=== PATIENT | female | born 1940 | race Two or more races ===

== ENCOUNTER 2018-07-02 23:44 | Inpatient (IN) | payer MEDICARE, MEDICAID ==
[~2018-07-02] VITALS: Ht 147.3 cm; Wt 47.6 kg
[2018-07-03] VITALS: BP 150/66
[2018-07-03] MEDS ORDERED: ZOLPIDEM TARTRATE 5 MG TABLET PO PRN (00:30)
[2018-07-03] MEDS ORDERED: HYDROCODONE/APAP 5/325MG 1 EACH TABLET PO PRN (00:30)
[2018-07-03] MEDS ORDERED: ACETAMINOPHEN 325 MG TABLET PO PRN (00:30)
[2018-07-03] MEDS ORDERED: Z GUARD REMEDY 2 OZ OINT TP PRN (00:30)
[2018-07-03] MEDS ORDERED: MAGNESIUM HYDROXIDE 30 ML UDC PO PRN (00:30)
[2018-07-03] MEDS ORDERED: MAG HYDROX/AL HYDROX/SIMETH 30 ML UDC PO PRN (00:30)
[2018-07-03] MEDS ORDERED: ONDANSETRON HCL/PF 4 MG/2 ML VIAL IVP PRN (00:30)
[2018-07-03 00:31] VITALS: BP 150/66
--- NOTE | 2018-07-03 00:53 | NUR ---
SUPERVISOR WINTER NOTES PATIENT ARRIVED AT 0000. DAUGHTER, FELICIANO, IS ACCOMPANYING HER. CHIEF COMPLAINT IS STOMACH PAIN. PATIENT HAS NO SIGNS OF RESPIRATORY DISTRESS. PATIENT DENIES SHORTNESS OF BREATH. PATIENT SAYS SHE HAS STOMACH PAIN THAT COMES AND GOES, PAIN LEVEL AT 4 AT THIS TIME. AWAITING VERIFICATION ORDER FROM PHARMACY. SAFETY PRECAUTIONS IMPLEMENTED. CALL LIGHT WITHIN REACH. WILL CONTINUE TO MONITOR PATIENT THROUGHOUT THE SHIFT.
--- NOTE | 2018-07-03 00:57 | NUR ---
RN NOTES REFUSAL NASOGASTRIC TUBE PLACEMENT WAS ORDERED. PATIENT REFUSED. ALL BENEFITS WAS DISCUSSED WITH DAUGHTER AND PATIENT. PATIENT STILL REFUSES NG TUBE INSERTION.
[2018-07-03 01:41] LABS: BASOPHILS % (AUTO) 0.5 % (0.0-2.0); EOSINOPHILS % (AUTO) 0.4 % (0.0-6.0); HEMATOCRIT 36 % (33-45); HEMOGLOBIN 12.3 g/dL (11.5-14.8); LYMPHOCYTES # (AUTO) 0.8 /CMM (0.8-4.8); LYMPHOCYTES % (AUTO) 15.4 % (20.0-44.0); MEAN CORPUSCULAR HGB CONC 34 g/dl (31.0-36.0); MEAN CORPUSCULAR VOLUME 88 fL (82-100); MONOCYTES # (AUTO) 0.6 /CMM (0.1-1.30); NEUTROPHILS # (AUTO) 3.5 /CMM (1.8-8.9); NEUTROPHILS % (AUTO) 70.7 % (43.0-81.0); PLATELET COUNT (AUTO) 115 /CMM (150-450); RED BLOOD CELL COUNT(AUTO) 4.12 MIL/uL (4.0-5.2); WHITE BLOOD COUNT (AUTO) 4.9 K/uL (4.3-11.0)
[2018-07-03 01:51] LABS: ALANINE AMINOTRANSFERASE 128 U/L (12-78); ALBUMIN 3.4 g/dL (3.4-5.0); ALKALINE PHOSPHATASE 87 U/L (46-116); ASPARTATE AMINOTRANSFERASE 135 U/L (15-37); BILIRUBIN,TOTAL 1.4 mg/dL (0.2-1.0); CALCIUM, SERUM 8.5 mg/dL (8.5-10.1); CARBON DIOXIDE 25 mmol/L (21-32); CHLORIDE 106 mmol/L (98-107); CREATININE 0.9 mg/dL (0.6-1.3); GLUCOSE 120 mg/dL (74-106); POTASSIUM 4.2 mmol/L (3.5-5.1); SODIUM SERUM 143 mmol/L (136-145); TOTAL PROTEIN, SERUM 6.3 g/dL (6.4-8.2); UREA NITROGEN, BLOOD 24 mg/dL (7-18)
[2018-07-03] MEDS: PANTOPRAZOLE 40 MG VIAL IV SCH ×2 (02:40→12:24)
[2018-07-03] MEDS: IV D5/0.45 NACL 1,000 ML IV PRN ×2 (02:43→22:55)
[2018-07-03] MEDS: MORPHINE SULFATE INJ 2 MG/ML DISP.SYRIN IV PRN ×2 (04:37→18:04)
--- NOTE | 2018-07-03 04:37 | NUR ---
RN NOTES MORPHINE 1MG IV GIVEN. DR. LAZARO IS AWARE PATIENT REFUSES NASOGASTRIC TUBE. DR. LAZARO INSTRUCTS TO KEEP HEAD OF BED ELEVATED AT THIS TIME.
--- NOTE | 2018-07-03 06:40 | NUR ---
RN CLOSING NOTES PATIENT IS RESTING IN BED. PATIENT HAS NO SIGNS OF RESPIRATORY DISTRESS. NO SIGNS OF SHORTNESS OF BREATH. NO FACIAL GRIMACING NOTED. SAFETY PRECAUTIONS IMPLEMENTED. ALL NEEDS ATTENDED. CALL LIGHT WITHIN REACH. WILL ENDORSE TO AM NURSE.
--- NOTE | 2018-07-03 07:55 | NUR ---
MS RN OPENING NOTES PATIENT RECEIVED IN BED AWAKE ALERT AND ORIENTED X3. PATIENT ABLE TO VERBALIZE NEEDS. BREATHING IS EVEN AND UNLABORED, NO SOB, TOLERATING BREATHING TO ROOM AIR. PATIENT DENIES PAIN OR DISCOMFORT AT THIS TIME. IV ON LAC IS PATENT AND INTACT WITHOUT SIGNS OR SYMPTOMS OF INFILTRATION. SKIN IS DRY AND WARM TO TOUCH. LINENS ARE CLEAN AND DRY. SAFETY PRECAUTIONS IN PLACE. BED AT LOWEST LOCKED POSITION. CALL LIGHT IS WITHIN REACH. WILL CONTINUE TO MONITOR.
[2018-07-03 08:00] VITALS: BP 119/59
[2018-07-03] MEDS ORDERED: LOPE2CAP40 PO (08:42)
[2018-07-03] MEDS ORDERED: POTA20TA83 PO (08:42)
[2018-07-03] MEDS ORDERED: MAGN400T26 PO (08:42)
[2018-07-03] MEDS ORDERED: OMEP20CA10 PO (08:42)
[2018-07-03] MEDS ORDERED: CALC-7 PO (08:42)
[2018-07-03] MEDS ORDERED: ALLO100T PO (08:42)
[2018-07-03] MEDS ORDERED: AMLO5TAB9 PO (08:42)
[2018-07-03] MEDS ORDERED: MELO-107 PO (08:44)
[2018-07-03] MEDS ORDERED: OMEPRAZOLE 20 MG CAPSULE.DR PO SCH (09:30)
[2018-07-03] MEDS: AMLODIPINE BESYLATE 5 MG TABLET PO SCH (09:30)
[2018-07-03] MEDS: CALCIUM CARB 250MG /VITAMIN D 1 UDTAB PO SCH (09:30)
[2018-07-03] MEDS ORDERED: DIATR MEGLU/DIATRIZOATE SODIUM 120 ML BOTTLE (GASTROGRAPHIN) ONE (12:48)
[2018-07-03 16:00] VITALS: BP 134/69
--- NOTE | 2018-07-03 19:24 | NUR ---
RN MS CLOSING NOTES PATIENT AWAKE AND RESTING COMFORTABLY IN BED AT THIS TIME PATIENT A/OX4. NEPALI SPEAKING. NO ACUTE CHANGES THROUGHOUT SHIFT. BREATHING EVEN AND UNLABORED. NO SOB NOTED. TOLERATING ROOM AIR. IV ON LEFT AC INTACT AND PATENT, IVF D5 1/2 NS INFUSING AT 75 ML/HR.NO SIGNS AND SYMPTOMS OF INFILTRATION NOTED. SKIN DRY AND WARM TO TOUCH. AFEBRILE. ALL NEEDS AND CARE ATTENDED WELL. SAFETY MEASURES IN PLACE, BED IN LOWEST LOCKED POSITION, SRX2 UP. CALL LIGHT WITHIN REACH. ENDORSED TO NIGHT NURSE BIJU FOR DINORAH.
--- NOTE | 2018-07-03 19:43 | NUR ---
RN MS OPENING NOTES RECEIVED PATIENT IN BED AWAKE, ALERT AND ORIENTED X3, VERBALLY RESPONSIVE, ABLE TO MAKE NEEDS KNOWN. POLISH SPEAKER ONLY. BREATHING EVEN AND UNLABORED. NO SOB NOTED. TOLERATING ROOM AIR. NO COMPLAINTS OF PAIN OR DISCOMFORT. NO FACIAL GRIMACING. IV ON LEFT AC INTACT AND PATENT. SKIN DRY AND WARM TO TOUCH. AFEBRILE. ALL OTHER NEEDS ATTENDED TO .SAFETY MEASURES IN PLACE. CALL LIGHT WITHIN REACH. WILL CONTINUE TO MONITOR.
[2018-07-03 20:00] VITALS: BP 129/86
[2018-07-04 06:27] LABS: BASOPHILS % (AUTO) 0.1 % (0.0-2.0); EOSINOPHILS % (AUTO) 2.4 % (0.0-6.0); HEMATOCRIT 32 % (33-45); HEMOGLOBIN 10.9 g/dL (11.5-14.8); LYMPHOCYTES # (AUTO) 1.1 /CMM (0.8-4.8); LYMPHOCYTES % (AUTO) 21.3 % (20.0-44.0); MEAN CORPUSCULAR HGB CONC 34 g/dl (31.0-36.0); MEAN CORPUSCULAR VOLUME 90 fL (82-100); MONOCYTES # (AUTO) 0.7 /CMM (0.1-1.30); MONOCYTES % (AUTO) 13.8 % (2.0-12.0); NEUTROPHILS # (AUTO) 3.1 /CMM (1.8-8.9); NEUTROPHILS % (AUTO) 62.4 % (43.0-81.0); PLATELET COUNT (AUTO) 98 /CMM (150-450); RED BLOOD CELL COUNT(AUTO) 3.56 MIL/uL (4.0-5.2)
--- NOTE | 2018-07-04 06:45 | NUR ---
RN MS CLOSING NOTES PATIENT RESTING IN BED. NO ACUTE CHANGES THROUGHOUT SHIFT. BREATHING EVEN AND UNLABORED. NO SOB NOTED. TOLERATING ROOM AIR. NO COMPLAINTS OF PAIN OR DISCOMFORT. NO FACIAL GRIMACING. IV ON LEFT AC INTACT AND PATENT WITH IVF INFUSING. SKIN DRY AND WARM TO TOUCH. AFEBRILE. ALL OTHER NEEDS ATTENDED TO .SAFETY MEASURES IN PLACE. CALL LIGHT WITHIN REACH. WILL ENDORSE TO ONCOMING NURSE FOR DINORAH.
[2018-07-04 06:52] LABS: ALANINE AMINOTRANSFERASE 73 U/L (12-78); ALKALINE PHOSPHATASE 68 U/L (46-116); ASPARTATE AMINOTRANSFERASE 37 U/L (15-37); BILIRUBIN,TOTAL 0.7 mg/dL (0.2-1.0); CARBON DIOXIDE 25 mmol/L (21-32); CHLORIDE 109 mmol/L (98-107); CREATININE 0.7 mg/dL (0.6-1.3); GLUCOSE 103 mg/dL (74-106); MAGNESIUM 1.5 mg/dL (1.8-2.4); PHOSPHORUS 2.1 mg/dL (2.5-4.9); SODIUM SERUM 144 mmol/L (136-145); TOTAL PROTEIN, SERUM 5.7 g/dL (6.4-8.2); UREA NITROGEN, BLOOD 18 mg/dL (7-18)
[2018-07-04 06:57] LABS: POTASSIUM 2.8 mmol/L (3.5-5.1)
--- NOTE | 2018-07-04 07:09 | NUR ---
RN MS NOTES RECEIVED LAB RESULT FOR LOW POTASSIUM OF 2.8. PAGED ONLINE TRADER LAST NIGHT, DR. LAZARO, HOWEVER, KSENIA FROM [employer] STATED THAT DR. LAZARO IS NOW OFF. ENDORSED TO XIOMARA SOLIZ AND XIOMARA VELASQUEZ. PATIENT IS RESTING IN BED. NO DISTRESS. STABLE CONDITION.
[2018-07-04 07:27] LABS: CHOLESTEROL 152 mg/dL (<200); HDL CHOLESTEROL 50 mg/dL (40-60); LDL 81 mg/dL (0-99); TRIGLYCERIDES 151 mg/dL (30-150)
--- NOTE | 2018-07-04 07:38 | NUR ---
MS RN OPENING NOTES PATIENT RECEIVED IN BED AWAKE ALERT AND ORIENTED X3. PATIENT ABLE TO VERBALIZE NEEDS. BREATHING IS EVEN AND UNLABORED, NO SOB, TOLERATING BREATHING TO ROOM AIR. PATIENT DENIES PAIN OR DISCOMFORT AT THIS TIME. IV ON LAC IS PATENT AND INTACT INFUSING IVF D5 1/2 NS @75 ML/HR. SKIN IS DRY AND WARM TO TOUCH. LINENS ARE CLEAN AND DRY. SAFETY PRECAUTIONS IN PLACE. BED AT LOWEST LOCKED POSITION. CALL LIGHT IS WITHIN REACH. WILL CONTINUE TO MONITOR.
[2018-07-04 08:16] VITALS: BP 131/56
--- NOTE | 2018-07-04 08:18 | NUR ---
MS RN NOTES PATIENT LAC HAS REDNESS, SWELLING, AND PAIN 8/10 AT SITE. IV ACCESS REMOVED. NEW IV ACCESS PLACED ON RIGHT WRIST GAUGE #22 INFUSING IVF D5 1/2 NS 75 ML/HR, AND INFUSING WELL.
[2018-07-04] MEDS: CALCIUM CARB 250MG /VITAMIN D 1 UDTAB PO SCH (09:00)
[2018-07-04] MEDS: MELOXICAM 7.5 MG TABLET PO SCH (09:00)
[2018-07-04] MEDS: AMLODIPINE BESYLATE 5 MG TABLET PO SCH (09:00)
--- NOTE | 2018-07-04 09:00 | NUR ---
RN NOTES LAB RESULTS REPORTED MAGNESIUM LEVEL 1.5, PHOSPHORUS LEVEL 2.1. MD NOTIFIED. REPLACED WITH MAGNESIUM 1 MG. IN D5 100ML GIVEN X2 BAGS IVPB, AND POTASSIUM CHLORIDE 20 MEQ PO TABLET X3 DOSES, AND NUTRI PHOS PACKET X2. WILL CONTINUE TO MONITOR.
[2018-07-04] MEDS: PANTOPRAZOLE 40 MG VIAL IV SCH (10:19)
[2018-07-04] MEDS: Magnesium 1GM/D5W 100ML PREMIX 100 ML IV SCH ×2 (10:32→12:02)
[2018-07-04] MEDS: POTASSIUM CHLORIDE 20 MEQ TAB.PRT.SR PO SCH ×3 (11:29→14:39)
--- NOTE | 2018-07-04 14:44 | NUR ---
RN NOTES PATIENT TOLERATED CLEAR LIQUID DIET AT LUNCH TIME WITH NO C/O ABDOMINAL PAIN, N & V. DIET ADVANCED TO FULL LIQUID DIET PER MD ORDER. WILL CONTINUE TO MONITOR.
[2018-07-04 16:00] VITALS: BP 133/69
[2018-07-04] MEDS ORDERED: NEUTRA PHOS 1 POWD.PACKET PO ONE (16:00)
[2018-07-04] MEDS: IV D5/0.45 NACL 1,000 ML IV PRN (17:56)
--- NOTE | 2018-07-04 18:52 | NUR ---
RN CLOSING NOTES PATIENT IS RESTING COMFORTABLY IN BED WITH SON AND DAUGHTER AT BEDSIDE. PATIENT DENIES PAIN OR DISCOMFORT AT THIS TIME. IV ACCESS ON RIGHT WRIST G#22 INFUSING D5 1/2 NS AT 75 ML/HR, INFUSING WELL, NO SIGNS AND SYMPTOMS OF INFILTRATION. BREATHING IS EVEN AND UNLABORED TO ROOM AIR WITH AN O2 SAT. 97%. VITAL SIGNS RECORDED AND ARE WNL AT THIS TIME. SAFETY PRECAUTIONS IMPLEMENTED, BED IN LOWEST LOCKED POSITION WITH SR UP X2, CALL LIGHT WITHIN REACH. WILL ENDORSE TO FORESTRY TREE PRUNER NURSE FOR DINORAH.
--- NOTE | 2018-07-04 19:28 | NUR ---
MS RN RECEIVE PT IN BED. A/O X 3. RESPIRATIONS EVEN AND UNLABORED, NO SOB NOTED, NO DISTRESS, SAFETY MEASURES IN PLACE. WILL CONTINUE TO MONITOR.
[2018-07-04 20:00] VITALS: BP 145/70
--- NOTE | 2018-07-05 06:09 | NUR ---
MS RN CLOSING NOTE ASLEEP EASILY AWAKEN, AM CARE RENDERED. RESPIRATIONS EVEN AND UNLABORED. NOT IN DISTRESS, STABLE. NEEDS ATTENDED AND ANTICIPATED, KEPT CLEAN, DRY AND COMFORT. NO COMPLAIN OF PAIN. SAFETY MEASURES IN PLACE, BED IN LOW LOCKED POSITION, CALL LIGHT WITHIN EASY REACH. ENDORSE TO NEXT SHIFT CONTINUITY OF CARE.
[2018-07-05] MEDS: IV D5/0.45 NACL 1,000 ML IV PRN (06:18)
--- NOTE | 2018-07-05 07:45 | NUR ---
MS/RN Patient received Patient received from night supervisor. A/O X3, Burkinan speaking only, vital signs within normal range, no pain. IV fluids infusing at 75ml/hr, no signs of infiltration seen. Call light within reach, will continue to monitor and ensure safety.
[2018-07-05 07:55] LABS: OCCULT BLOOD STOOL NEGATIVE (NEGATIVE)
[2018-07-05 08:00] VITALS: BP 142/68
[2018-07-05 08:01] VITALS: BP 142/68
[2018-07-05] MEDS: CALCIUM CARB 250MG /VITAMIN D 1 UDTAB PO SCH (08:41)
[2018-07-05] MEDS: PANTOPRAZOLE 40 MG VIAL IV SCH (08:41)
[2018-07-05] MEDS: MELOXICAM 7.5 MG TABLET PO SCH (08:41)
[2018-07-05] MEDS: AMLODIPINE BESYLATE 5 MG TABLET PO SCH (08:42)
--- NOTE | 2018-07-05 09:00 | NUR ---
MS/RN Medications Morning medications administered as ordered, no difficulty swallowing.
[2018-07-05 09:49] LABS: CALCIUM, SERUM 7.7 mg/dL (8.5-10.1); CARBON DIOXIDE 23 mmol/L (21-32); CHLORIDE 107 mmol/L (98-107); CREATININE 0.6 mg/dL (0.6-1.3); GLUCOSE 108 mg/dL (74-106); PHOSPHORUS 2.1 mg/dL (2.5-4.9); POTASSIUM 3.4 mmol/L (3.5-5.1); SODIUM SERUM 139 mmol/L (136-145); UREA NITROGEN, BLOOD 8 mg/dL (7-18)
[2018-07-05] MEDS ORDERED: POTASSIUM CHLORIDE 20 MEQ TAB.PRT.SR PO ONE (12:30)
[2018-07-05] MEDS: NEUTRA PHOS 1 POWD.PACKET PO SCH ×2 (13:13→17:00)
--- NOTE | 2018-07-05 13:30 | NUR ---
MS/RN S/B Brian Stallworth TRANSPORTATION PROJECT MANAGER Seen by TRANSPORTATION PROJECT MANAGER - patient to be discharged to home later today following potassium and phosphate replacement.
--- NOTE | 2018-07-05 14:30 | NUR ---
MS/RN Exit care Exit care prepared.
[2018-07-05 15:35] VITALS: BP 133/80
--- NOTE | 2018-07-05 17:00 | NUR ---
MS/corporate manager paperwork Discharge paperwork completed and ready for signing, will wait for daughter to arrive before getting signatures. Heplock removed, pressure dressing applied.
--- NOTE | 2018-07-05 19:29 | NUR ---
MS/glass setter Patient discharged to home in stable condition. Heplock and name bands removed. Educated daughter as to the importance of following up with patient's primary care doctor within one week, stated understanding. Instructed to return to the nearest emergency room if experiencing any severe pain. Paperwork signed by daughter, all personal belongings returned to patient and accounted for on belongings list. Escorted to main door by WAREHOUSE TRAFFIC SUPERVISOR.
== END 2018-07-05 19:30 | disposition home or self-care (01) | DRG 392 ==
LOC: MED 23:44
PROVIDERS: ADMIT Nurse Practitioner Acute Care; ATTEND Hospitalist
DX: K29.70 Gastritis, unspecified, without bleeding (principal); E44.1 Mild protein-calorie malnutrition; M19.90 Unspecified osteoarthritis, unspecified site; M81.0 Age-related osteoporosis without current pathological fracture; E83.42 Hypomagnesemia; E83.39 Other disorders of phosphorus metabolism; E87.6 Hypokalemia; E77.8 Other disorders of glycoprotein metabolism; F32.9 Major depressive disorder, single episode, unspecified; I10 Essential (primary) hypertension; Z85.038 Personal history of other malignant neoplasm of large intestine; Z90.49 Acquired absence of other specified parts of digestive tract; M10.9 Gout, unspecified; Z90.710 Acquired absence of both cervix and uterus; Z68.21 Body mass index [BMI] 21.0-21.9, adult
CPT/HCPCS: 36415; 74250-TC; 80048-TC; 80053-TC; 80061-TC; 82272-TC; 83735-TC; 84100-TC; 85025-TC; 87081-TC; C9113; G0378; J2270; J2405; J3475; J3490; Q9963